=== PATIENT | female | born 1980 | race Caucasian/White ===

== ENCOUNTER 2021-01-18 21:26 | Emergency (ER) | payer SELFPAY ==
[2021-01-18] MEDS ORDERED: Ketorolac 15 MG/ML SDV IM ONE (22:59)
[2021-01-18] MEDS ORDERED: Cephalexin 500 MG Cap PO ONE (23:00)
[2021-01-18] MEDS ORDERED: Dexamethasone 4 MG Tab PO ONE (23:01)
[2021-01-18] MEDS ORDERED: Ibuprofen 600 MG Tab PO ONE (23:07)
== END 2021-01-18 23:44 | disposition home or self-care (01) ==
LOC: MW.ED 21:26
DX: N39.0 Urinary tract infection, site not specified (principal); M54.41 Lumbago with sciatica, right side; Z88.1 Allergy status to other antibiotic agents
CPT/HCPCS: 81001; 87086; 99283; A9270; J8540